=== PATIENT | male | born 1955 | race Caucasian/White ===

== ENCOUNTER → 2017-03-08 | Outpatient (CLI) | payer MEDICARE ==
[~2017-03-08] MED LIST: ASPIRIN81 M1 PO; BENICAR40 MG PO; FOLIC ACID1 MG PO; LIPITOR20 MG PO; LYRICA50 MG PO; METFORMIN1000 MG PO; PLAVIX75 MG PO; TREXALL15 MG PO
[2017-03-08 13:15] LABS: HEMATOCRIT 42.1 % (42.0-52.0); HEMOGLOBIN 13.9 g/dl (14.0-18.0); MEAN CELL VOLUME 85.4 fl (80.0-94.0); MEAN CORPUSCULAR HGB 28.2 pg (27.0-31.0); MEAN PLATELET VOLUME 10.2 fl (9.6-12.3); RED BLOOD COUNT 4.93 10*6/uL (4.50-5.90); RED CELL DISTRI WIDTH 13.9 % (0-14.5); WHITE BLOOD COUNT 8.8 10*3/uL (4.8-10.8)
[2017-03-08 13:41] LABS: ALBUMIN 3.5 gm/dl (3.1-4.5); ALKALINE PHOSPHATASE 71 U/L (45-117); BILIRUBIN, TOTAL 0.3 mg/dl (0.2-1.0); BUN 12 mg/dl (7-24); CARBON DIOXIDE 28 mmol/L (21-32); CHLORIDE 102 mmol/L (98-107); CHOLESTEROL 142 mg/dL (<200); EST GLOM FILT AFRICAN AMERICAN > 60 ml/min; GLUCOSE 149 mg/dL (65-99); HDL CHOLESTEROL 39 mg/dl (40-60); LDL CHOLESTEROL 71 mg/dL (9-159); SGOT/AST 17 IU/L (3-35); SGPT/ALT 17 U/L (12-78); SODIUM 141 mmol/L (136-145); TOTAL PROTEIN 7.6 gm/dL (6.4-8.2); TRIGLYCERIDES 159 mg/dl (<150); VLDL CHOLESTEROL 32 mg/dL (6-40)
== END | disposition home or self-care (01) ==
LOC: LAB 12:55
PROVIDERS: Family Medicine
DX: E11.9 Type 2 diabetes mellitus without complications (principal); I10 Essential (primary) hypertension; E55.9 Vitamin D deficiency, unspecified; M06.9 Rheumatoid arthritis, unspecified

== ENCOUNTER → 2019-03-01 | Outpatient (CLI) | payer MEDICARE ==
[2019-03-01 15:35] LABS: HEMATOCRIT 42.7 % (42.0-52.0); HEMOGLOBIN 13.6 g/dl (14.0-18.0); MEAN CELL VOLUME 85.6 fl (80.0-94.0); MEAN CORPUSCULAR HGB 27.3 pg (27.0-31.0); MEAN CORPUSCULAR HGB CONC 31.9 g/dl (33.0-37.0); MEAN PLATELET VOLUME 10.8 fl (9.6-12.3); RED BLOOD COUNT 4.99 10*6/uL (4.50-5.90); RED CELL DISTRI WIDTH 14.2 % (0-14.5); WHITE BLOOD COUNT 7.9 10*3/uL (4.8-10.8)
[2019-03-01 15:58] LABS: ALBUMIN 3.5 gm/dl (3.1-4.5); BUN 17 mg/dl (7-24); CHLORIDE 102 mmol/L (98-107); CHOLESTEROL 166 mg/dL (<200); CPK 76 U/L (39-308); CREATININE 1.27 mg/dL (0.70-1.30); HDL CHOLESTEROL 31 mg/dl (40-60); LDL CHOLESTEROL 100 mg/dL (9-159); POTASSIUM 5.3 mmol/L (3.5-5.1); SGOT/AST 9 IU/L (3-35); SGPT/ALT 16 U/L (12-78); SODIUM 138 mmol/L (136-145); TRIGLYCERIDES 177 mg/dl (<150); VLDL CHOLESTEROL 35 mg/dL (6-40)
[2019-03-01 16:05] LABS: ALKALINE PHOSPHATASE 103 U/L (45-117)
== END | disposition home or self-care (01) ==
LOC: LAB 14:23
PROVIDERS: Family Medicine
DX: Z12.5 Encounter for screening for malignant neoplasm of prostate (principal); E11.9 Type 2 diabetes mellitus without complications; E78.00 Pure hypercholesterolemia, unspecified; E55.9 Vitamin D deficiency, unspecified; M19.90 Unspecified osteoarthritis, unspecified site